=== PATIENT | female | born 1970 | race African-American/Black ===

== ENCOUNTER 2018-05-01 15:42 | Inpatient (IN) ==
[2018-05-01] MEDS ORDERED: ONDANSETRON 4 MG/2 ML VIAL IV PRN (16:17)
[2018-05-01] MEDS ORDERED: MAGNESIUM SULF RIDER 2 GM in PREMIX 1 EACH IV PRN (16:17)
[2018-05-01] MEDS ORDERED: MAGNESIUM SULF RIDER 4 GM in PREMIX 1 EACH IV PRN (16:17)
[2018-05-01] MEDS ORDERED: ACETAMINOPHEN 325 MG TABLET PO PRN (16:17)
[2018-05-01] MEDS ORDERED: diphenhydrAMINE CAP 25 MG CAPSULE PO PRN (16:21)
[2018-05-01] MEDS ORDERED: GLUCAGON 1 MG VIAL IM PRN (16:37)
[2018-05-01] MEDS ORDERED: DEXTROSE 50% 25 GM/50 ML VIAL IV PRN (16:37)
[2018-05-01] MEDS ORDERED: ASPIRIN EC 325 MG TABLET PO SCH (17:00)
[2018-05-01 19:30] LABS: Basophils # 0.1 10*3/uL (0.0-0.2); Basophils % 0.8 % (0.0-0.8); Eosinophils # 0.2 10*3/uL (0.0-0.87); Eosinophils % 3.5 % (0.00-10.9); Hematocrit 35.8 VOL% (35.7-47.0); Hemoglobin 11.1 GM/DL (12.0-16.0); Immature Granulocytes % 0.3 %; Immature Granulocytes Absolute 0.02 #; Lymphocytes # 3.3 10*3/uL (1.4-4.0); Lymphocytes % 53.9 % (21.3-54.2); Mean Corpuscular Hemoglobin 26 PG (27-34); Mean Corpuscular Volume 82.1 FL (87-102); Mean Platelet Volume 11.9 FL (9.6-12.0); Monocytes # 0.4 10*3/uL (0.11-0.8); Monocytes % 7.1 % (1.7-12.7); Neutrophils # 2.1 10*3/uL (1.4-7.4); Neutrophils % 34.4 % (38.7-73.9); Platelet Count 257 T/CUMM (130-400); Red Blood Count 4.36 MC/CUMM (3.8-5.5); Red Cell Distribution Width 18.6 % (9.3-17.3); White Blood Count 6.1 T/CUMM (4-12)
[2018-05-01 20:10] LABS: Albumin 2.9 G/DL (3.4-5.0); Calcium 8.2 MG/DL (8.5-10.1); Osmolality,Calculated 281.4 MOS/KG (273-304); Thyroid Stimulating Hormone 2.09 uIU/ml (0.358-3.74); Total Protein 7.1 G/DL (6.4-8.3)
[2018-05-01 20:31] LABS: Apearance,Urine CLEAR (Clear); Bacteria,Urine Occasional /HPF (Few); Bilirubin,Urine Negative (Negative); Blood, Urine Negative (Negative); Glucose,Urine (UA) Negative (Negative); Ketones,Urine Negative (Negative); Nitrite,Urine Negative (Negative); Protein,Urine Negative; RBC,Urine <1 /HPF (0-4); Squamous Epithelial Cell,Urine Occasional /HPF (0-10); Urine Color Yellow (Yellow); Urine Specific Gravity 1.015 (1.001-1.035); WBC,Urine 2 /HPF (0-6)
[2018-05-01] MEDS: PANTOPRAZOLE 40 MG TABLET PO SCH (20:45)
[2018-05-01] MEDS: ZALEPLON 5 MG CAPSULE PO PRN (20:45)
[2018-05-01] MEDS: ATORVASTATIN 40 MG TABLET PO SCH (20:45)
[2018-05-01 20:46] LABS: Barbiturates Screen,Urine Negative (Negative); Benzodiazepines Screen,Urine Negative (Negative); Cannabinoid Screen,Urine Negative (Negative); Opiate Screen,Urine Positive (Negative); Phencyclidine Screen,Urine Negative (Negative)
[2018-05-01] MEDS ORDERED: CARVEDILOL 12.5 MG TABLET PO SCH (21:00)
[2018-05-01] MEDS: ENOXAPARIN 40 MG/0.4 ML SYRINGE SUBCUT SCH (21:38)
[2018-05-01] MEDS: INSULIN REGULAR 100 UNIT/ML SUBCUT SCH (21:38)
[2018-05-02 05:43] LABS: Basophils # 0.1 10*3/uL (0.0-0.2); Eosinophils # 0.2 10*3/uL (0.0-0.87); Eosinophils % 3.5 % (0.00-10.9); Hematocrit 33.2 VOL% (35.7-47.0); Hemoglobin 10.3 GM/DL (12.0-16.0); Immature Granulocytes % 0.3 %; Immature Granulocytes Absolute 0.02 #; Lymphocytes # 2.9 10*3/uL (1.4-4.0); Lymphocytes % 50.4 % (21.3-54.2); Mean Corpuscular Hemoglobin 25 PG (27-34); Mean Corpuscular Volume 81.2 FL (87-102); Mean Platelet Volume 12.1 FL (9.6-12.0); Monocytes # 0.4 10*3/uL (0.11-0.8); Monocytes % 7.3 % (1.7-12.7); Neutrophils # 2.2 10*3/uL (1.4-7.4); Neutrophils % 37.5 % (38.7-73.9); Platelet Count 239 T/CUMM (130-400); Red Blood Count 4.09 MC/CUMM (3.8-5.5); Red Cell Distribution Width 18.6 % (9.3-17.3); White Blood Count 5.8 T/CUMM (4-12)
[2018-05-02 06:28] LABS: Alanine Aminotransferase 17 U/L (13-56); Albumin 2.8 G/DL (3.4-5.0); Alkaline Phosphatase 217 U/L (45-117); Aspartate Amino Transferase 15 U/L (0-37); Blood Urea Nitrogen 11 MG/DL (7-18); Calcium 8.1 MG/DL (8.5-10.1); Glucose 147 MG/DL (74-106); Osmolality,Calculated 284.1 MOS/KG (273-304); Potassium 2.9 MMOL/L (3.5-5.1); Sodium 142 MMOL/L (136-145); Total Protein 6.3 G/DL (6.4-8.3)
[2018-05-02 06:34] LABS: Eosinophils 3 % (0-10); Hypochromasia 1+; Lymphocytes 54 % (20-55); Ovalocytes Slight; Platelet Estimate Adequate; Segmented Neutrophils 38 % (50-85); Total Cells Counted 100
[2018-05-02 06:35] LABS: Atypical Lymphocytes Few
[2018-05-02 07:07] LABS: HDL Cholesterol 20 MG/DL (40-60); Triglycerides 53 MG/DL (2-150); VLDL CHOLESTEROL 10.6 MG/DL
[2018-05-02 07:08] LABS: Cholesterol < 50 MG/DL (50-200)
[2018-05-02] MEDS ORDERED: POTASSIUM CHLORIDE 20 MEQ TABLET PO ONE (07:20)
[2018-05-02] MEDS: INSULIN REGULAR 100 UNIT/ML SUBCUT SCH ×4 (07:58→21:21)
[2018-05-02] MEDS: glipiZIDE 10 MG TABLET PO SCH ×2 (07:59→16:38)
[2018-05-02] MEDS: FUROSEMIDE 40 MG TABLET PO SCH ×2 (07:59→16:38)
[2018-05-02] MEDS ORDERED: FUROSEMIDE 40 MG TABLET PO SCH (09:00)
[2018-05-02] MEDS: HALOPERIDOL 5 MG TABLET PO SCH (09:07)
[2018-05-02] MEDS: CETIRIZINE 10 MG TABLET PO SCH (09:08)
[2018-05-02] MEDS: MAGNESIUM OXIDE 400 MG TABLET PO SCH ×2 (09:08→20:38)
[2018-05-02] MEDS: sitaGLIPtin 100 MG TABLET PO SCH (09:08)
[2018-05-02] MEDS: SPIRONOLACTONE 25 MG TABLET PO SCH (09:08)
[2018-05-02] MEDS: PANTOPRAZOLE 40 MG TABLET PO SCH (09:08)
[2018-05-02] MEDS: ASPIRIN EC 81 MG TABLET PO SCH (09:08)
[2018-05-02] MEDS: CARVEDILOL 12.5 MG TABLET PO SCH ×2 (09:08→20:39)
[2018-05-02] MEDS: POTASSIUM CHLORIDE 20 MEQ TABLET PO SCH ×2 (09:09→20:39)
[2018-05-02] MEDS: ENOXAPARIN 40 MG/0.4 ML SYRINGE SUBCUT SCH (20:36)
[2018-05-02] MEDS: ATORVASTATIN 40 MG TABLET PO SCH (20:39)
[2018-05-02] MEDS: MAGNESIUM HYDROXIDE SUSP 30 ML UDCUP PO PRN (21:15)
[2018-05-02] MEDS: ZALEPLON 5 MG CAPSULE PO PRN (21:59)
[2018-05-02] MEDS: ALBUTEROL 2.5 MG/3 ML NEB RESP TX PRN (22:06)
[2018-05-03 05:12] LABS: Basophils # 0.1 10*3/uL (0.0-0.2); Basophils % 0.8 % (0.0-0.8); Eosinophils # 0.2 10*3/uL (0.0-0.87); Hematocrit 32.1 VOL% (35.7-47.0); Immature Granulocytes % 0.2 %; Immature Granulocytes Absolute 0.01 #; Lymphocytes # 2.9 10*3/uL (1.4-4.0); Lymphocytes % 45.7 % (21.3-54.2); Mean Corpuscular HGB Conc 31.2 GM/DL (32-36); Mean Corpuscular Hemoglobin 25 PG (27-34); Mean Corpuscular Volume 81.1 FL (87-102); Mean Platelet Volume 12.2 FL (9.6-12.0); Monocytes # 0.5 10*3/uL (0.11-0.8); Monocytes % 7.1 % (1.7-12.7); Neutrophils # 2.8 10*3/uL (1.4-7.4); Neutrophils % 43.2 % (38.7-73.9); Platelet Count 262 T/CUMM (130-400); Red Blood Count 3.96 MC/CUMM (3.8-5.5); Red Cell Distribution Width 18.4 % (9.3-17.3); White Blood Count 6.4 T/CUMM (4-12)
[2018-05-03 05:32] LABS: Calcium 8.6 MG/DL (8.5-10.1); Osmolality,Calculated 282.3 MOS/KG (273-304); Potassium 3.5 MMOL/L (3.5-5.1)
[2018-05-03] MEDS: INSULIN REGULAR 100 UNIT/ML SUBCUT SCH ×4 (08:37→21:55)
[2018-05-03] MEDS: PANTOPRAZOLE 40 MG TABLET PO SCH (09:11)
[2018-05-03] MEDS: sitaGLIPtin 100 MG TABLET PO SCH (09:11)
[2018-05-03] MEDS: HALOPERIDOL 5 MG TABLET PO SCH (09:11)
[2018-05-03] MEDS: POTASSIUM CHLORIDE 20 MEQ TABLET PO SCH ×2 (09:11→21:55)
[2018-05-03] MEDS: CARVEDILOL 12.5 MG TABLET PO SCH ×2 (09:11→21:55)
[2018-05-03] MEDS: CETIRIZINE 10 MG TABLET PO SCH (09:11)
[2018-05-03] MEDS: MAGNESIUM OXIDE 400 MG TABLET PO SCH ×2 (09:12→21:55)
[2018-05-03] MEDS: SPIRONOLACTONE 25 MG TABLET PO SCH (09:12)
[2018-05-03] MEDS: FUROSEMIDE 40 MG TABLET PO SCH ×2 (09:12→17:09)
[2018-05-03] MEDS: ASPIRIN EC 81 MG TABLET PO SCH (09:12)
[2018-05-03] MEDS: glipiZIDE 10 MG TABLET PO SCH ×2 (09:12→17:17)
[2018-05-03] MEDS ORDERED: POTASSIUM CHLORIDE 20 MEQ TABLET PO ONE (14:49)
[2018-05-03] MEDS: FUROSEMIDE 40 MG/4 ML VIAL IV ONE ×2 (15:03→19:00)
[2018-05-03 18:40] LABS: Apearance,Urine CLEAR (Clear); Bilirubin,Urine Negative (Negative); Blood, Urine Small mg/dL (Negative); Glucose,Urine (UA) Negative (Negative); Hyaline Casts,Urine 1 /LPF (0-3); Ketones,Urine Negative (Negative); Mucus,Urine Occasional /LPF (Occasional); Nitrite,Urine Negative (Negative); Protein,Urine Negative; RBC,Urine 1 /HPF (0-4); Squamous Epithelial Cell,Urine Occasional /HPF (0-10); Urine Color Yellow (Yellow); Urine Specific Gravity 1.013 (1.001-1.035); Urine Urobilinogen < 2.0 EU/DL (0.2-1.0); WBC,Urine 1 /HPF (0-6)
[2018-05-03] MEDS: MAGNESIUM HYDROXIDE SUSP 30 ML UDCUP PO PRN (19:03)
[2018-05-03] MEDS: ATORVASTATIN 40 MG TABLET PO SCH (21:54)
[2018-05-03] MEDS: ENOXAPARIN 40 MG/0.4 ML SYRINGE SUBCUT SCH (21:55)
[2018-05-03] MEDS: ZALEPLON 5 MG CAPSULE PO PRN (21:57)
[2018-05-04 06:04] LABS: Basophils # 0.1 10*3/uL (0.0-0.2); Basophils % 0.8 % (0.0-0.8); Eosinophils # 0.2 10*3/uL (0.0-0.87); Hematocrit 32.7 VOL% (35.7-47.0); Hemoglobin 9.9 GM/DL (12.0-16.0); Immature Granulocytes % 0.4 %; Immature Granulocytes Absolute 0.03 #; Lymphocytes # 3.8 10*3/uL (1.4-4.0); Lymphocytes % 49.2 % (21.3-54.2); Mean Corpuscular HGB Conc 30.3 GM/DL (32-36); Mean Corpuscular Hemoglobin 25 PG (27-34); Mean Corpuscular Volume 82.4 FL (87-102); Mean Platelet Volume 12.4 FL (9.6-12.0); Monocytes # 0.6 10*3/uL (0.11-0.8); Neutrophils % 38.6 % (38.7-73.9); Platelet Count 281 T/CUMM (130-400); Red Blood Count 3.97 MC/CUMM (3.8-5.5); Red Cell Distribution Width 18.5 % (9.3-17.3); White Blood Count 7.8 T/CUMM (4-12)
[2018-05-04 06:40] LABS: Anisocytosis 2+; Band Neutrophils 5 % (0-10); Lymphocytes 44 % (20-55); Poikilocytosis 2+; Polychromasia 1+; Segmented Neutrophils 46 % (50-85); Total Cells Counted 100
[2018-05-04] MEDS: INSULIN REGULAR 100 UNIT/ML SUBCUT SCH ×4 (07:50→21:29)
[2018-05-04] MEDS: sitaGLIPtin 100 MG TABLET PO SCH (08:45)
[2018-05-04] MEDS: CETIRIZINE 10 MG TABLET PO SCH (08:45)
[2018-05-04] MEDS: MAGNESIUM OXIDE 400 MG TABLET PO SCH ×2 (08:45→21:27)
[2018-05-04] MEDS: FUROSEMIDE 40 MG TABLET PO SCH ×2 (08:45→16:30)
[2018-05-04] MEDS: CARVEDILOL 12.5 MG TABLET PO SCH ×2 (08:45→21:28)
[2018-05-04] MEDS: SACUBITRIL/VALSARTAN 49-51 MG TABLET PO SCH ×2 (08:45→21:27)
[2018-05-04] MEDS: glipiZIDE 10 MG TABLET PO SCH ×2 (08:45→16:30)
[2018-05-04] MEDS: HALOPERIDOL 5 MG TABLET PO SCH (08:45)
[2018-05-04] MEDS: POTASSIUM CHLORIDE 20 MEQ TABLET PO SCH ×2 (08:45→21:28)
[2018-05-04] MEDS: PANTOPRAZOLE 40 MG TABLET PO SCH (08:46)
[2018-05-04] MEDS: SPIRONOLACTONE 25 MG TABLET PO SCH (08:46)
[2018-05-04] MEDS: ASPIRIN EC 81 MG TABLET PO SCH (08:54)
[2018-05-04 11:04] LABS: Calcium 8.4 MG/DL (8.5-10.1)
[2018-05-04 11:05] LABS: Osmolality,Calculated 282.7 MOS/KG (273-304); Potassium 3.7 MMOL/L (3.5-5.1)
[2018-05-04] MEDS ORDERED: FUROSEMIDE 40 MG/4 ML VIAL IV ONE (16:47)
[2018-05-04] MEDS ORDERED: POTASSIUM CHLORIDE 20 MEQ TABLET PO ONE (16:48)
[2018-05-04] MEDS ORDERED: NON-FORMULARY MEDICATION (Albuterol Inhaler 2 PUFF) INH PRN (16:49)
[2018-05-04] MEDS ORDERED: OXYMETAZOLINE 0.05% NASAL SPRAY 15 ML BOTTLE BOTH NARES PRN (16:50)
[2018-05-04] MEDS: MAGNESIUM HYDROXIDE SUSP 30 ML UDCUP PO PRN (21:23)
[2018-05-04] MEDS: ALPRAZolam 0.5 MG TABLET PO SCH ×2 (21:26→23:07)
[2018-05-04] MEDS: ZALEPLON 5 MG CAPSULE PO PRN ×2 (21:26→23:08)
[2018-05-04] MEDS: ATORVASTATIN 40 MG TABLET PO SCH (21:27)
[2018-05-04] MEDS: ENOXAPARIN 40 MG/0.4 ML SYRINGE SUBCUT SCH (21:29)
[2018-05-05] MEDS ORDERED: LORazepam 2 MG/1 ML VIAL ONE (02:31)
[2018-05-05] MEDS ORDERED: LORazepam 2 MG/1 ML VIAL IV ONE (02:47)
[2018-05-05 05:24] LABS: Calcium 8.5 MG/DL (8.5-10.1); Potassium 4.2 MMOL/L (3.5-5.1)
[2018-05-05 05:28] LABS: Basophils # 0.1 10*3/uL (0.0-0.2); Basophils % 0.9 % (0.0-0.8); Eosinophils # 0.3 10*3/uL (0.0-0.87); Eosinophils % 3.2 % (0.00-10.9); Hematocrit 36.7 VOL% (35.7-47.0); Immature Granulocytes % 0.4 %; Immature Granulocytes Absolute 0.03 #; Lymphocytes # 3.2 10*3/uL (1.4-4.0); Lymphocytes % 40.7 % (21.3-54.2); Mean Corpuscular Hemoglobin 25 PG (27-34); Mean Corpuscular Volume 83.6 FL (87-102); Mean Platelet Volume 13.2 FL (9.6-12.0); Monocytes # 0.6 10*3/uL (0.11-0.8); Monocytes % 7.8 % (1.7-12.7); Neutrophils # 3.7 10*3/uL (1.4-7.4); Platelet Count 249 T/CUMM (130-400); Red Blood Count 4.39 MC/CUMM (3.8-5.5); Red Cell Distribution Width 18.8 % (9.3-17.3); White Blood Count 7.8 T/CUMM (4-12)
[2018-05-05] MEDS ORDERED: metOLazone 5 MG TABLET PO SCH (09:00)
[2018-05-05] MEDS ORDERED: POTASSIUM CHLORIDE 20 MEQ TABLET PO SCH (09:00)
[2018-05-05] MEDS: INSULIN REGULAR 100 UNIT/ML SUBCUT SCH ×4 (09:27→21:41)
[2018-05-05] MEDS: SPIRONOLACTONE 25 MG TABLET PO SCH (09:28)
[2018-05-05] MEDS: POTASSIUM CHLORIDE 20 MEQ TABLET PO SCH ×2 (09:28→21:40)
[2018-05-05] MEDS: CARVEDILOL 12.5 MG TABLET PO SCH ×2 (09:29→21:39)
[2018-05-05] MEDS: glipiZIDE 10 MG TABLET PO SCH ×2 (09:29→16:25)
[2018-05-05] MEDS: MAGNESIUM OXIDE 400 MG TABLET PO SCH ×2 (09:29→21:39)
[2018-05-05] MEDS: ASPIRIN EC 81 MG TABLET PO SCH (09:30)
[2018-05-05] MEDS: HALOPERIDOL 5 MG TABLET PO SCH (09:30)
[2018-05-05] MEDS: PANTOPRAZOLE 40 MG TABLET PO SCH (09:30)
[2018-05-05] MEDS: ALPRAZolam 0.5 MG TABLET PO SCH ×2 (09:30→21:40)
[2018-05-05] MEDS: sitaGLIPtin 100 MG TABLET PO SCH (09:30)
[2018-05-05] MEDS: CETIRIZINE 10 MG TABLET PO SCH (09:30)
[2018-05-05] MEDS: SACUBITRIL/VALSARTAN 49-51 MG TABLET PO SCH ×2 (09:32→21:40)
[2018-05-05] MEDS: FUROSEMIDE 40 MG/4 ML VIAL IV SCH ×2 (09:33→16:25)
[2018-05-05] MEDS: FUROSEMIDE 40 MG TABLET PO SCH (09:40)
[2018-05-05] MEDS: ALBUTEROL 2.5 MG/3 ML NEB RESP TX PRN (16:00)
[2018-05-05] MEDS: ATORVASTATIN 40 MG TABLET PO SCH (21:39)
[2018-05-05] MEDS: ENOXAPARIN 40 MG/0.4 ML SYRINGE SUBCUT SCH (21:40)
[2018-05-05] MEDS: DOCUSATE SODIUM 100 MG CAPSULE PO PRN (21:40)
[2018-05-06 05:23] LABS: Basophils # 0.1 10*3/uL (0.0-0.2); Basophils % 0.9 % (0.0-0.8); Eosinophils # 0.2 10*3/uL (0.0-0.87); Eosinophils % 3.3 % (0.00-10.9); Hematocrit 34.7 VOL% (35.7-47.0); Hemoglobin 10.9 GM/DL (12.0-16.0); Immature Granulocytes % 0.3 %; Immature Granulocytes Absolute 0.02 #; Lymphocytes # 3.4 10*3/uL (1.4-4.0); Lymphocytes % 51.8 % (21.3-54.2); Mean Corpuscular HGB Conc 31.4 GM/DL (32-36); Mean Corpuscular Hemoglobin 25 PG (27-34); Mean Corpuscular Volume 79.4 FL (87-102); Mean Platelet Volume 11.9 FL (9.6-12.0); Monocytes # 0.6 10*3/uL (0.11-0.8); Monocytes % 9.3 % (1.7-12.7); Neutrophils # 2.3 10*3/uL (1.4-7.4); Neutrophils % 34.4 % (38.7-73.9); Platelet Count 301 T/CUMM (130-400); Red Blood Count 4.37 MC/CUMM (3.8-5.5); Red Cell Distribution Width 18.9 % (9.3-17.3); White Blood Count 6.6 T/CUMM (4-12)
[2018-05-06 05:46] LABS: Osmolality,Calculated 279.4 MOS/KG (273-304); Potassium 3.8 MMOL/L (3.5-5.1)
[2018-05-06 05:56] LABS: Acanthocytes Few; Atypical Lymphocytes Few; Eosinophils 10 % (0-10); Hypochromasia 1+; Lymphocytes 54 % (20-55); Microcytosis 1+; Segmented Neutrophils 34 % (50-85); Total Cells Counted 100
[2018-05-06 05:57] LABS: Platelet Estimate Normal
[2018-05-06] MEDS ORDERED: ALPRAZolam 0.5 MG TABLET PO PRN (06:49)
[2018-05-06] MEDS: INSULIN REGULAR 100 UNIT/ML SUBCUT SCH ×4 (09:07→23:17)
[2018-05-06] MEDS: POTASSIUM CHLORIDE 20 MEQ TABLET PO SCH ×2 (09:08→21:04)
[2018-05-06] MEDS: FUROSEMIDE 40 MG TABLET PO SCH ×2 (09:08→16:51)
[2018-05-06] MEDS: SPIRONOLACTONE 25 MG TABLET PO SCH (09:08)
[2018-05-06] MEDS: CARVEDILOL 12.5 MG TABLET PO SCH ×2 (09:08→21:05)
[2018-05-06] MEDS: sitaGLIPtin 100 MG TABLET PO SCH (09:08)
[2018-05-06] MEDS: MAGNESIUM OXIDE 400 MG TABLET PO SCH ×2 (09:08→21:39)
[2018-05-06] MEDS: AMIODARONE 200 MG TABLET PO SCH ×2 (09:09→21:04)
[2018-05-06] MEDS: PANTOPRAZOLE 40 MG TABLET PO SCH (09:09)
[2018-05-06] MEDS: glipiZIDE 10 MG TABLET PO SCH ×2 (09:09→16:52)
[2018-05-06] MEDS: SACUBITRIL/VALSARTAN 49-51 MG TABLET PO SCH ×2 (09:09→21:04)
[2018-05-06] MEDS: ASPIRIN EC 81 MG TABLET PO SCH (09:09)
[2018-05-06] MEDS: ATORVASTATIN 40 MG TABLET PO SCH (21:05)
[2018-05-06] MEDS: ENOXAPARIN 40 MG/0.4 ML SYRINGE SUBCUT SCH (21:05)
[2018-05-06] MEDS: DOCUSATE SODIUM 100 MG CAPSULE PO PRN (21:05)
[2018-05-07 04:26] LABS: Basophils % 0.8 % (0.0-0.8); Eosinophils # 0.2 10*3/uL (0.0-0.87); Eosinophils % 4.6 % (0.00-10.9); Hematocrit 34.9 VOL% (35.7-47.0); Hemoglobin 10.9 GM/DL (12.0-16.0); Immature Granulocytes % 0.2 %; Immature Granulocytes Absolute 0.01 #; Lymphocytes # 2.6 10*3/uL (1.4-4.0); Lymphocytes % 50.7 % (21.3-54.2); Mean Corpuscular HGB Conc 31.2 GM/DL (32-36); Mean Corpuscular Hemoglobin 25 PG (27-34); Mean Corpuscular Volume 78.8 FL (87-102); Mean Platelet Volume 12.4 FL (9.6-12.0); Monocytes # 0.5 10*3/uL (0.11-0.8); Monocytes % 8.8 % (1.7-12.7); Neutrophils # 1.8 10*3/uL (1.4-7.4); Neutrophils % 34.9 % (38.7-73.9); Platelet Count 352 T/CUMM (130-400); Red Blood Count 4.43 MC/CUMM (3.8-5.5); Red Cell Distribution Width 18.7 % (9.3-17.3); White Blood Count 5.2 T/CUMM (4-12)
[2018-05-07 05:11] LABS: Eosinophils 6 % (0-10); Lymphocytes 50 % (20-55); Segmented Neutrophils 34 % (50-85); Total Cells Counted 100
[2018-05-07 05:12] LABS: Atypical Lymphocytes Few; Platelet Estimate Adequate; Polychromasia Few; Target Cells Few
[2018-05-07 05:51] LABS: Calcium 8.8 MG/DL (8.5-10.1); Osmolality,Calculated 278.8 MOS/KG (273-304); Potassium 3.8 MMOL/L (3.5-5.1)
[2018-05-07] MEDS: SPIRONOLACTONE 25 MG TABLET PO SCH (08:15)
[2018-05-07 08:16] VITALS: BP 90/61
[2018-05-07] MEDS: CARVEDILOL 12.5 MG TABLET PO SCH (08:16)
[2018-05-07] MEDS: glipiZIDE 10 MG TABLET PO SCH (08:38)
[2018-05-07] MEDS: SACUBITRIL/VALSARTAN 49-51 MG TABLET PO SCH (08:38)
[2018-05-07] MEDS: MAGNESIUM OXIDE 400 MG TABLET PO SCH (08:38)
[2018-05-07] MEDS: PANTOPRAZOLE 40 MG TABLET PO SCH (08:38)
[2018-05-07] MEDS: INSULIN REGULAR 100 UNIT/ML SUBCUT SCH ×2 (08:39→12:10)
[2018-05-07] MEDS: POTASSIUM CHLORIDE 20 MEQ TABLET PO SCH (08:39)
[2018-05-07] MEDS: ASPIRIN EC 81 MG TABLET PO SCH (08:39)
[2018-05-07] MEDS: sitaGLIPtin 100 MG TABLET PO SCH (08:39)
[2018-05-07] MEDS: AMIODARONE 200 MG TABLET PO SCH (08:39)
[2018-05-07] MEDS ORDERED: FUROSEMIDE 40 MG TABLET PO SCH (09:00)
== END 2018-05-07 12:10 | disposition home or self-care (01) | DRG 308 ==
LOC: N.CC → N.TELEN 05-03 05:56
PROVIDERS: ADMIT Internal Medicine Cardiovascular Disease; ATTEND Internal Medicine Cardiovascular Disease

== ENCOUNTER 2019-08-03 20:30 | Inpatient (IN) ==
[2019-08-03] MEDS ORDERED: methylPREDNISolone SOD SUC 125 MG/2 ML VIAL IV STA (21:08)
[2019-08-03] MEDS ORDERED: ONDANSETRON 4 MG/2 ML VIAL IV STA (21:08)
[2019-08-03] MEDS ORDERED: ALBUTEROL/IPRATROPIUM 3 ML NEB RESP TX STA (21:08)
[2019-08-03] MEDS ORDERED: MORPHINE 4 MG/1 ML VIAL IV STA (21:08)
[2019-08-03] MEDS ORDERED: NICOTINE 21 MG/24 HR PATCH TRANSDERM PRN (21:43)
[2019-08-03] MEDS ORDERED: ONDANSETRON 4 MG/2 ML VIAL IV PRN (21:43)
[2019-08-03] MEDS ORDERED: ACETAMINOPHEN 325 MG TABLET PO PRN (21:43)
[2019-08-03] MEDS ORDERED: diphenhydrAMINE CAP 25 MG CAPSULE PO PRN (21:43)
[2019-08-03] MEDS ORDERED: guaiFENesin/DM ER 600-30 MG TABLET PO PRN (21:43)
[2019-08-03 22:26] LABS: Basophils # 0.1 10*3/uL (0.0-0.2); Basophils % 0.8 % (0.0-0.8); Eosinophils # 0.1 10*3/uL (0.0-0.87); Eosinophils % 2.1 % (0.00-10.9); Hematocrit 35.5 VOL% (35.7-47.0); Hemoglobin 10.8 GM/DL (12.0-16.0); Immature Granulocytes % 0.5 %; Immature Granulocytes Absolute 0.03 #; Lymphocytes # 2.6 10*3/uL (1.4-4.0); Lymphocytes % 38.9 % (21.3-54.2); Mean Corpuscular HGB Conc 30.4 GM/DL (32-36); Mean Corpuscular Volume 80.3 FL (87-102); Mean Platelet Volume 11.3 FL (9.6-12.0); Monocytes % 8.7 % (1.7-12.7); Platelet Count 212 T/CUMM (130-400); Red Blood Count 4.42 MC/CUMM (3.8-5.5); Red Cell Distribution Width 22.1 % (9.3-17.3); White Blood Count 6.7 T/CUMM (4-12)
[2019-08-03 22:33] LABS: INR 1.4; PT Patient Result 14.9 SECS (9.6-12.2)
[2019-08-03 22:50] LABS: Alanine Aminotransferase 15 U/L (13-56); Albumin 3.1 G/DL (3.4-5.0); Alkaline Phosphatase 311 U/L (45-117); Amylase 32 U/L (25-115); Aspartate Amino Transferase 29 U/L (0-37); Blood Urea Nitrogen 8 MG/DL (7-18); Calcium 8.5 MG/DL (8.5-10.1); Glucose 58 MG/DL (74-106); Osmolality,Calculated 278.1 MOS/KG (273-304); Total Protein 6.7 G/DL (6.4-8.3)
[2019-08-03 22:55] LABS: HDL Cholesterol 17 MG/DL (40-60); Risk Ratio 2.94; Triglycerides 57 MG/DL (2-150); VLDL CHOLESTEROL 11.4 MG/DL
[2019-08-04] MEDS: MORPHINE 4 MG/1 ML VIAL IV PRN ×3 (00:01→12:27)
[2019-08-04] MEDS: ALBUTEROL/IPRATROPIUM 3 ML NEB RESP TX SCH ×4 (00:23→20:11)
[2019-08-04] MEDS ORDERED: SACUBITRIL/VALSARTAN 49-51 MG TABLET PO SCH (09:00)
[2019-08-04] MEDS: FUROSEMIDE 40 MG/4 ML VIAL IV SCH ×2 (09:03→16:04)
[2019-08-04] MEDS ORDERED: MAGNESIUM SULF RIDER 2 GM in PREMIX 1 EACH IV PRN (11:20)
[2019-08-04] MEDS ORDERED: ALBUTEROL 2.5 MG/3 ML NEB RESP TX PRN (11:20)
[2019-08-04] MEDS ORDERED: MAGNESIUM SULF RIDER 4 GM in PREMIX 1 EACH IV PRN (11:20)
[2019-08-04] MEDS ORDERED: POTASSIUM CHLORIDE 20 MEQ TABLET PO PRN (11:20)
[2019-08-04] MEDS ORDERED: AMIODARONE 200 MG TABLET PO SCH (11:30)
[2019-08-04 12:43] LABS: Apearance,Urine CLEAR (Clear); Bacteria,Urine Occasional /HPF (Few); Bilirubin,Urine Negative (Negative); Blood, Urine Negative (Negative); Glucose,Urine (UA) Negative (Negative); Hyaline Casts,Urine 18 /LPF (0-3); Ketones,Urine Negative (Negative); Mucus,Urine Occasional /LPF (Occasional); Nitrite,Urine Negative (Negative); Protein,Urine Negative; RBC,Urine 2 /HPF (0-4); Squamous Epithelial Cell,Urine Occasional /HPF (0-10); Urine Color Yellow (Yellow); Urine Specific Gravity 1.009 (1.001-1.035); WBC,Urine <1 /HPF (0-6)
[2019-08-04] MEDS: MAGNESIUM OXIDE 400 MG TABLET PO SCH ×2 (12:49→21:13)
[2019-08-04] MEDS: POTASSIUM CHLORIDE 20 MEQ TABLET PO SCH (12:49)
[2019-08-04] MEDS: ASPIRIN EC 81 MG TABLET PO SCH (12:49)
[2019-08-04] MEDS: glipiZIDE 10 MG TABLET PO SCH (16:04)
[2019-08-04] MEDS: HALOPERIDOL 5 MG TABLET PO SCH (21:13)
[2019-08-04] MEDS: SACUBITRIL/VALSARTAN 49-51 MG TABLET PO SCH (21:13)
[2019-08-04] MEDS: traZODone 50 MG TABLET PO SCH (21:13)
[2019-08-04] MEDS: SERTRALINE 100 MG TABLET PO SCH (21:14)
[2019-08-04] MEDS: ATORVASTATIN 40 MG TABLET PO SCH (21:15)
[2019-08-04] MEDS: CARVEDILOL 25 MG TABLET PO SCH (21:15)
[2019-08-05] MEDS: MORPHINE 4 MG/1 ML VIAL IV PRN (00:19)
[2019-08-05] MEDS: ALBUTEROL/IPRATROPIUM 3 ML NEB RESP TX SCH ×4 (02:03→20:14)
[2019-08-05 04:42] LABS: Basophils % 0.5 % (0.0-0.8); Eosinophils % 0.1 % (0.00-10.9); Hematocrit 36.8 VOL% (35.7-47.0); Immature Granulocytes % 0.2 %; Immature Granulocytes Absolute 0.02 #; Lymphocytes # 2.3 10*3/uL (1.4-4.0); Lymphocytes % 27.8 % (21.3-54.2); Mean Corpuscular HGB Conc 29.9 GM/DL (32-36); Mean Corpuscular Volume 81.6 FL (87-102); Mean Platelet Volume 11.6 FL (9.6-12.0); Monocytes % 9.8 % (1.7-12.7); Neutrophils % 61.6 % (38.7-73.9); Platelet Count 179 T/CUMM (130-400); Red Blood Count 4.51 MC/CUMM (3.8-5.5); Red Cell Distribution Width 22.5 % (9.3-17.3); White Blood Count 8.4 T/CUMM (4-12)
[2019-08-05 05:00] LABS: Hypochromasia 1+; Platelet Estimate Adequate
[2019-08-05 05:15] LABS: Osmolality,Calculated 281.4 MOS/KG (273-304)
[2019-08-05] MEDS ORDERED: metOLazone 5 MG TABLET PO SCH (09:00)
[2019-08-05] MEDS: FUROSEMIDE 40 MG/4 ML VIAL IV SCH ×2 (09:43→16:31)
[2019-08-05] MEDS: SPIRONOLACTONE 25 MG TABLET PO SCH (10:28)
[2019-08-05] MEDS: POTASSIUM CHLORIDE 20 MEQ TABLET PO SCH (10:28)
[2019-08-05] MEDS: ASPIRIN EC 81 MG TABLET PO SCH (10:28)
[2019-08-05] MEDS: glipiZIDE 10 MG TABLET PO SCH ×2 (10:28→16:37)
[2019-08-05] MEDS: AMIODARONE 200 MG TABLET PO SCH (10:29)
[2019-08-05] MEDS: MAGNESIUM OXIDE 400 MG TABLET PO SCH ×2 (10:29→20:41)
[2019-08-05] MEDS: SERTRALINE 100 MG TABLET PO SCH ×2 (10:29→20:41)
[2019-08-05] MEDS: CARVEDILOL 25 MG TABLET PO SCH ×2 (10:29→20:42)
[2019-08-05] MEDS: sitaGLIPtin 100 MG TABLET PO SCH (10:29)
[2019-08-05] MEDS: TOLTERODINE LA 4 MG CAPSULE PO SCH (10:41)
[2019-08-05] MEDS: SACUBITRIL/VALSARTAN 49-51 MG TABLET PO SCH ×2 (10:41→20:41)
[2019-08-05] MEDS: traZODone 50 MG TABLET PO SCH (20:41)
[2019-08-05] MEDS: ATORVASTATIN 40 MG TABLET PO SCH (20:42)
[2019-08-05] MEDS: HALOPERIDOL 5 MG TABLET PO SCH (20:42)
[2019-08-06] MEDS: ALBUTEROL/IPRATROPIUM 3 ML NEB RESP TX SCH ×2 (01:44→07:20)
[2019-08-06 05:18] LABS: Calcium 8.9 MG/DL (8.5-10.1); Osmolality,Calculated 282.4 MOS/KG (273-304)
[2019-08-06 05:28] LABS: Basophils # 0.1 10*3/uL (0.0-0.2); Basophils % 0.8 % (0.0-0.8); Eosinophils # 0.1 10*3/uL (0.0-0.87); Eosinophils % 1.3 % (0.00-10.9); Hematocrit 39.1 VOL% (35.7-47.0); Hemoglobin 11.6 GM/DL (12.0-16.0); Immature Granulocytes % 0.4 %; Immature Granulocytes Absolute 0.03 #; Lymphocytes # 2.6 10*3/uL (1.4-4.0); Lymphocytes % 34.9 % (21.3-54.2); Mean Corpuscular HGB Conc 29.7 GM/DL (32-36); Mean Corpuscular Volume 82.8 FL (87-102); Mean Platelet Volume 11.3 FL (9.6-12.0); Monocytes % 7.8 % (1.7-12.7); NRBC # 0.03 10*3/uL; Neutrophils % 54.8 % (38.7-73.9); Platelet Count 212 T/CUMM (130-400); Red Blood Count 4.72 MC/CUMM (3.8-5.5); Red Cell Distribution Width 22.4 % (9.3-17.3); White Blood Count 7.5 T/CUMM (4-12)
[2019-08-06 05:35] LABS: Hypochromasia 1+; Platelet Estimate Adequate
[2019-08-06] MEDS ORDERED: LACTULOSE 20 GM/30 ML UDCUP PO PRN (07:57)
[2019-08-06 08:23] VITALS: BP 100/42
[2019-08-06] MEDS: POTASSIUM CHLORIDE 20 MEQ TABLET PO SCH (09:37)
[2019-08-06] MEDS: SERTRALINE 100 MG TABLET PO SCH (09:37)
[2019-08-06] MEDS: AMIODARONE 200 MG TABLET PO SCH (09:37)
[2019-08-06] MEDS: glipiZIDE 10 MG TABLET PO SCH (09:37)
[2019-08-06] MEDS: MAGNESIUM OXIDE 400 MG TABLET PO SCH (09:37)
[2019-08-06] MEDS: ASPIRIN EC 81 MG TABLET PO SCH (09:37)
[2019-08-06] MEDS: sitaGLIPtin 100 MG TABLET PO SCH (09:37)
[2019-08-06] MEDS: SACUBITRIL/VALSARTAN 49-51 MG TABLET PO SCH (09:37)
[2019-08-06] MEDS: SPIRONOLACTONE 25 MG TABLET PO SCH (09:38)
[2019-08-06] MEDS: CARVEDILOL 25 MG TABLET PO SCH (09:38)
[2019-08-06] MEDS: TOLTERODINE LA 4 MG CAPSULE PO SCH (09:40)
== END 2019-08-06 13:52 | disposition home or self-care (01) | DRG 292 ==
LOC: EDUNIT# → EDBD → N.EDINP 20:30 → N.ED 20:30 → N.TELES 22:28
PROVIDERS: ADMIT Internal Medicine; ATTEND Internal Medicine